=== PATIENT | male | born 1960 | race African-American/Black ===

== ENCOUNTER 2016-08-26 15:49 | Emergency (ER) | payer MEDICARE, OTHER ==
[~2016-08-26] VITALS: Ht 170.2 cm; Wt 74.8 kg
[~2016-08-26 15:49] MED LIST: ASPIRIN325 MG ORAL; BACITRACIN1 EACH TOPIC; COZAAR50 MG ORAL; LIPITOR20 MG ORAL; NKM; NORCO 5-325 TA1 EACH ORAL; NORCO 7.5/3251 EA ORAL; NORVASC5 MG ORAL; OXYCODONE HCL30 MG PO; OXYCONTIN80 MG PO; PULMICORT0.5 MG/2 M IH; SULFAMETHOXAZO1 EAC2 ORAL; SULFAMETHOXAZO100 GM MC
[2016-08-26] MEDS ORDERED: PROMETHAZINE-D118 ML ORAL (16:18)
[2016-08-26] MEDS ORDERED: NORCO 10-325 T1 EACH ORAL (16:18)
[2016-08-26 16:25] VITALS: BP 128/75
[2016-08-26 16:27] VITALS: BP 128/75
--- NOTE | 2016-08-26 20:28 | Emergency Room Report ---
History of Present Illness General Chief Complaint: Lower Back Pain or Injury Source: Patient Present Illness HPI 56-year-old male presents ED complaining of lower back pain x2 days. Denies recent trauma. Notes chronic history of back pain with prior surgeries to his back. Patient states he is "in between doctors". Scheduled to see a pain management doctor next month. States he currently does not have any pain medication. Pain is sharp, 10 out of 10 to the lower back, nonradiating. No other aggravating or relieving factors. Denies bowel or bladder incontinence. Denies any leg or motor weakness. Denies any other associated symptoms Allergies: Coded Allergies: No Known Allergies (Unverified , 09/07/12) Patient History Past Medical History: CVA/TIA Past Surgical History: none Pertinent Family History: none Social History: Denies: alcohol use, drug use, smoking Immunizations: UTD Reviewed Nursing Documentation: PMH: Agreed, PSxH: Agreed Nursing Documentation-PMH Past Medical History: No Stated History Hx Cardiac Problems: No Hx Hypertension: No Hx Pacemaker: No Hx Asthma: No Hx COPD: No Hx Diabetes: No Hx Cancer: No Hx Gastrointestinal Problems: No Hx Dialysis: No Hx Neurological Problems: No Hx Cerebrovascular Accident: No Hx Transient Ischemic Attacks: Yes Hx Seizures: No Review of Systems All Other Systems: negative except mentioned in HPI Physical Exam Vital Signs Date Time Temp Pulse Resp B/P Pulse Ox O2 Delivery O2 Flow Rate FiO2 08/26/16 15:56 97.9 116 18 139/98 100 Room Air Sp02 EP Interpretation: reviewed, normal General Appearance: no apparent distress, alert, GCS 15, non-toxic Head: normocephalic Eyes: bilateral eye PERRL, bilateral eye normal inspection ENT: normal ENT inspection Neck: normal inspection Respiratory: normal inspection Cardiovascular #1: normal inspection Gastrointestinal: normal inspection Rectal: deferred Genitourinary: no CVA tenderness, vertebral tenderness Musculoskeletal: normal inspection Neurologic: alert, oriented x3, responsive, motor strength/tone normal, sensory intact, speech normal Psychiatric: normal inspection Skin: normal inspection Lymphatic: normal inspection Medical Decision Making Diagnostic Impression: Primary Impression: Low back pain Qualified Codes: M54.5 - Low back pain; G89.29 - Other chronic pain Additional Impression: Chronic pain Qualified Codes: G89.29 - Other chronic pain ER Course Hospital Course 56-year-old male presents ED complaining of lower back pain. h/o back surgery Differential diagnoses include: pyelonephritis, kidney stone, muscle strain, Lspine fracture Clinical course Patient placed on stretcher. After initial history and physical I reviewed CURES; patient is not have any narcotic prescriptions filled the last 6 months. I did agree to provide him with a three-day prescription Diagnosis - low back pain , chronic pain Stable and discharged to home with prescription for [place]. Followup with PMD. Return to ED if symptoms recur or worsen Last Vital Signs Date Time Temp Pulse Resp B/P Pulse Ox O2 Delivery O2 Flow Rate FiO2 08/26/16 16:27 98.1 99 16 128/75 100 Room Air Status: improved Disposition: HOME, SELF-CARE Condition: Stable Scripts D-Methorphan Hb/Prometh Hcl* (PROMETHAZINE-DM SYRUP*) 118 Ml Syrup 5 ML ORAL Q4H Y for For Cough, #118 ML 0 Refills Prov: REHANA MENDIOLA M.D. 08/26/16 Hydrocodone Bit/Acetaminophen 10-325* (NORCO 10-325*) 1 Each Tablet 1 TAB ORAL Q6H Y for For Pain, #10 TAB 0 Refills PRN PAIN Prov: REHANA MENDIOLA M.D. 08/26/16 Referrals: NON PHYSICIAN (PCP) Patient Instructions: Chronic Back Pain REHANA MENDIOLA M.D. Aug 26, 2016 20:28
== END 2016-08-26 16:27 | disposition home or self-care (01) ==
LOC: EMR 16:15
DX: M54.5 Low back pain (principal); G89.29 Other chronic pain; Z86.73 Personal history of transient ischemic attack (TIA), and cerebral infarction without residual deficits
CPT/HCPCS: 99284